=== PATIENT | male | born 1950 | race Caucasian/White ===

== ENCOUNTER 2016-12-17 12:14 | Day surgery (SDC) | payer BC ==
[~2016-12-17] VITALS: Ht 177.8 cm; Wt 86.5 kg
[2016-12-17 12:30] VITALS: BP 153/82; PULSE 60; TEMP 98
[2016-12-17 14:15] VITALS: BP 110/70; PULSE 61; TEMP 98.1
[2016-12-17 14:30] VITALS: BP 108/72; PULSE 67
[2016-12-17 14:45] VITALS: BP 116/75; PULSE 61
== END 2016-12-17 14:50 | disposition home or self-care (01) ==
LOC: SDCO 12:14
DX: Z12.11 Encounter for screening for malignant neoplasm of colon (principal)
CPT/HCPCS: OP; J2250; J3010; J7030